=== PATIENT | female | born 1965 | race Caucasian/White ===

== ENCOUNTER 2018-02-17 09:06 | Day surgery (SDC) | payer OTHER ==
[~2018-02-17 09:06] MED LIST: CEFAZOLIN 2 GM/50 ML (PMX) 50 ML IVPB; SOD CHLORIDE 0.9% 1,000 ML IV
[2018-02-17 09:49] LABS: ADD MAN DIFF? NO
[2018-02-17 09:51] LABS: WHITE BLOOD COUNT 5.7 10^3/ul (4.8-10.8)
[2018-02-17 09:51] LABS: BASOPHIL # 0.1 10^3/ul (0.0-0.1); BASOPHILS % 0.9 % (0.0-2.0); EOSINOPHILS # 0.1 10^3/ul (0.0-0.5); EOSINOPHILS % 1.2 % (0.0-7.0); HEMATOCRIT 41.3 % (37.0-47.0); HEMOGLOBIN 14.1 g/dl (12.0-16.0); LYMPHOCYTES # 2.1 10^3/ul (0.8-2.9); LYMPHOCYTES % 36.3 % (15.0-51.0); MEAN CORPUSCULAR HEMOGLOBIN 30.3 pg (29.0-33.0); MEAN CORPUSCULAR HGB CONC 34.1 g/dl (32.0-37.0); MEAN CORPUSCULAR VOLUME 88.6 fl (82.0-101.0); MEAN PLATELET VOLUME 10.4 fl (7.4-10.4); MONOCYTE # 0.4 10^3/ul (0.3-0.9); MONOCYTES % 6.5 % (0.0-11.0); NEUTROPHIL # 3.2 10^3/ul (1.6-7.5); NEUTROPHILS % 54.9 % (39.0-77.0); PLATELET COUNT 317 10^3/UL (140-415); RED BLOOD COUNT 4.66 10^6/ul (4.20-5.40); RED CELL DISTRIBUTION WIDTH 14.4 % (11.5-14.5)
[2018-02-17] MEDS: SOD CHLORIDE 0.9% 1,000 ML IV (09:56)
[2018-02-17] MEDS: CEFAZOLIN 2 GM/50 ML (PMX) 50 ML IVPB (10:00)
[2018-02-17 10:10] LABS: INR 0.86; PROTIME 11.8 Sec (11.9-14.9); PT RATIO 0.9
[2018-02-17 10:11] LABS: PARTIAL THROMBOPLASTIN TIME 30.3 Sec (25.0-35.0)
[2018-02-17] MEDS ORDERED: FENTAnyl 50 MCG/ML VIAL (10:55)
[2018-02-17] MEDS ORDERED: MEPERIDINE 25 MG INJ IV (11:00)
[2018-02-17] MEDS ORDERED: HYDROmorphONE 1 MG/5 ML IV SYRINGE IV ×2 (11:00)
[2018-02-17] MEDS ORDERED: FENTAnyl 50 MCG/ML VIAL IV ×2 (11:00)
[2018-02-17] MEDS ORDERED: METOCLOPRAMIDE 10 MG INJ IV (11:00)
[2018-02-17] MEDS ORDERED: ALBUTEROL 0.083% (NEB) 2.5 MG/3 ML AMP HHN (11:00)
[2018-02-17] MEDS ORDERED: ONDANSETRON 4 MG INJ IV (11:00)
[2018-02-17] MEDS ORDERED: DIPHENHYDRAMINE 50 MG INJ IV (11:00)
[2018-02-17] MEDS ORDERED: SUCCINYLCHOLINE CHLORIDE 100 MG/5 ML SYG IV (11:19)
[2018-02-17] MEDS ORDERED: CEFAZOLIN 1 GM INJ (11:19)
[2018-02-17] MEDS ORDERED: PROPOFOL 20 ML (11:19)
[2018-02-17] MEDS ORDERED: SUGAMMADEX SODIUM 200 MG/2 ML VIAL IV (11:19)
[2018-02-17] MEDS ORDERED: ROCURONIUM 50 MG INJ (11:19)
[2018-02-17] MEDS: BUPIVACAINE 0.25% (MPF) 30 ML INJ (11:38)
[2018-02-17] MEDS: HYDROmorphONE 1 MG/5 ML IV SYRINGE IV (12:06)
[2018-02-17] MEDS: HYDROCODONE/APAP (5/325) TAB PO (13:25)
== END 2018-02-17 13:30 | disposition home or self-care (01) ==
LOC: SDS 09:06
DX: D17.1 Benign lipomatous neoplasm of skin and subcutaneous tissue of trunk (principal)
CPT/HCPCS: 14000; 71045; 85025; 85610; 85730; 88307